=== PATIENT | male | born 1950 | race Caucasian/White ===

== ENCOUNTER 2018-11-20 11:49 | Emergency (ER) | payer MEDICARE ==
--- NOTE | 2018-11-20 12:26 | ER Document Report ---
ED Medical Screen (RME) - General Chief Complaint: Leg Swelling Stated Complaint: LEFT LEG PAIN Time Seen by Provider: 11/20/18 12:20 Primary Care Provider: MARCOS GOMEZ NP [Primary Care Provider] - Follow up as needed Mode of Arrival: Ambulatory Information source: Patient Notes: This 68-year-old male presents emergency department with complaints of left lower leg pain since Sunday. Reports the area is getting increasing pain and warm. 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 Patient also history of diabetes. Patient reports he did drive approximately 8 hours on Sunday. Patient does take Xarelto. Denies other symptoms such as fever chest pain shortness of breath. Patient did go to [facility] prior to arrival and they sent him here. I have greeted and performed a rapid initial assessment of this patient. A comprehensive ED assessment and evaluation of the patient, analysis of test results and completion of the medical decision making process will be conducted by additional ED providers. Dictation of this chart was performed using voice recognition software; therefore, there may be some unintended grammatical e rrors. TRAVEL OUTSIDE OF THE [place] IN LAST 30 DAYS: No - Related Data Allergies/Adverse Reactions: duloxetine HCl [From Cymbalta] Allergy (Severe, Verified 11/20/18 11:50) vertigo hydrocodone [Hydrocodone] Allergy (Verified 11/20/18 11:50) itching oxycodone [Oxycodone] Allergy (Verified 11/20/18 11:50) itching Penicillins Allergy (Verified 11/20/18 11:50) Rash Past Medical History - Social History Chew tobacco use (# tins/day): No Frequency of alcohol use: None Drug Abuse: None - Past Medical History Cardiac Medical History: Reports: Hx Hypertension - medicated Denies: Hx Coronary Artery Disease, Hx Heart Attack Pulmonary Medical History: Denies: Hx Asthma, Hx Bronchitis, Hx COPD, Hx Pneumonia Neurological Medical History: Denies: Hx Cerebrovascular Accident, Hx Seizures GI Medical History: Denies: Hx Hepatitis, Hx Hiatal Hernia, Hx Ulcer Musculoskeltal Medical History: Reports Hx Arthritis Infectious Medical History: Denies: Hx Hepatitis Past Surgical History: Denies: Hx Open Heart Surgery, Hx Pacemaker - Immunizations Hx Diphtheria, Pertussis, Tetanus Vaccination: No Physical Exam - Vital signs Vitals: Temp Pulse Resp BP Pulse Ox 97.6 F 90 18 140/95 H 94 11/20/18 11:59 11/20/18 11:59 11/20/18 11:59 11/20/18 11:59 11/20/18 11:59 Course - Vital Signs Vital signs: Temp Pulse Resp BP Pulse Ox 97.6 F 90 18 140/95 H 94 11/20/18 11:59 11/20/18 11:59 11/20/18 11:59 11/20/18 11:59 11/20/18 11:59 Doctor's Discharge - Discharge Referrals: MARCOS GOMEZ BOBBIN MARKER [Primary Care Provider] - Follow up as needed
[2018-11-20 12:50] LABS: ABSOLUTE EOSINOPHILS # (AUTO) 0.1 10^3/uL (0.0-0.6); ABSOLUTE LYMPHOCYTES (AUTO) 3.1 10^3/uL (0.5-4.7); ABSOLUTE NEUT (AUTO) 5.5 10^3/uL (1.7-8.2); BASOPHILS % (AUTO) 0.3 % (0-2); EOSINOPHILS % (AUTO) 0.8 % (0-6); HEMATOCRIT 44.8 % (37.9-51.0); HEMOGLOBIN 14.5 g/dL (13.5-17.0); LYMPHOCYTES % (AUTO) 32.3 % (13-45); MEAN CORPUSCULAR HEMOGLOBIN 22.5 pg (27.0-33.4); MEAN CORPUSCULAR HGB CONC 32.4 g/dL (32.0-36.0); MEAN CORPUSCULAR VOLUME 69 fl (80-97); MONOCYTES % (AUTO) 10.4 % (3-13); PLATELET COUNT 222 10^3/uL (150-450); RED BLOOD COUNT 6.46 10^6/uL (4.35-5.55); RED CELL DISTRIBUTION WIDTH 18.1 % (11.5-14.0); SEGMENTED NEUTROPHILS % (AUTO) 56.2 % (42-78); TOTAL CELLS COUNTED % (AUTO) 100 %; WHITE BLOOD COUNT 9.7 10^3/uL (4.0-10.5)
[2018-11-20 12:57] LABS: INTERNATIONAL RATION (INR) 1.12; PROTHROMBIN TIME 14.5 SEC (11.4-15.4)
[2018-11-20 12:58] LABS: PARTIAL THROMBOPLASTIN TIME 34.9 SEC (23.5-35.8)
[2018-11-20 13:13] LABS: ALBUMIN 4.3 g/dL (3.5-5.0); ALKALINE PHOSPHATASE 96 U/L (38-126); ANION GAP 10 (5-19); ASPARTATE AMINO TRANSFERASE 34 U/L (17-59); BILIRUBIN,DIRECT 0.3 mg/dL (0.0-0.4); BILIRUBIN,TOTAL 0.5 mg/dL (0.2-1.3); BLOOD UREA NITROGEN 14 mg/dL (7-20); CALCIUM 10.1 mg/dL (8.4-10.2); CARBON DIOXIDE 29 mmol/L (22-30); CHLORIDE 102 mmol/L (98-107); GLUCOSE 91 mg/dL (75-110); POTASSIUM 5.2 mmol/L (3.6-5.0); TOTAL PROTEIN 7.1 g/dL (6.3-8.2)
--- NOTE | 2018-11-20 15:27 | RADIOLOGY REPORT (SQ) ---
EXAM DESCRIPTION: VENOUS UNILATERAL LOWER COMPLETED DATE/TIME: 11/20/2018 3:03 pm REASON FOR STUDY: left lower leg pain, hx DVT COMPARISON: None. TECHNIQUE: Dynamic and static wolff scale and color images acquired of the left leg venous system. Se lected spectral images acquired with additional compression and augmentation maneuvers. The contralat eral common femoral vein and saphenofemoral junction were also imaged. Images stored on PACS. LIMITATIONS: None. FINDINGS: COMMON FEMORAL: Normal phasicity, compression and augmentation. No visualized echogenic ma terial on wolff scale. No defects on color images. FEMORAL: Normal compression and augmentation. No visualized echogenic material on wolff scale. No defe cts on color images. POPLITEAL: Normal compression, augmentation. No visualized echogenic material on wolff scale. No defec ts on color images. CALF VESSELS: Normal compression, augmentation. No visualized echogenic material on wolff scale. No de fects on color images. GSV and SSV: Normal compression, augmentation. No visualized echogenic material on wolff scale. No def ects on color images. ANY DEEP VENOUS INSUFFICIENCY: No. ANY EVIDENCE OF POPLITEAL CYST: No. OTHER: No other finding. CONTRALATERAL COMMON FEMORAL VEIN AND SAPHENOFEMORAL JUNCTION: Normal phasicity, compression and augmentation. No visualized echogenic material on wolff scale. No de fects on color images. IMPRESSION: NO EVIDENCE OF DVT OR SVT IN THE LEFT LEG. TECHNICAL DOCUMENTATION: JOB ID: [id number] [employer]- All Rights Reserved Reading location - IP/workstation name: [email or web address]
--- NOTE | 2018-11-20 16:34 | ER Document Report ---
ED General - General Chief Complaint: Leg Swelling Stated Complaint: LEFT LEG PAIN Time Seen by Provider: 11/20/18 12:20 Primary Care Provider: MARCOS GOMEZ NP [Primary Care Provider] - Follow up as needed Mode of Arrival: Ambulatory TRAVEL OUTSIDE OF THE [place] IN LAST 30 DAYS: No - HPI Notes: Patient is a very pleasant 68-year-old male presents emergency department for evaluation of left leg pain. Is been intermittent since Sunday. He states that it is a sharp and shooting pain, goes through the medial aspect of the posterior leg, which does not seem to be brought about by anything in particular. He saw his primary physicians for [facility], who recommended he come to the emergency department for evaluation. He denies any chest pain or shortness of breath. No injury to the area. He does have a history of aneurysm in that leg, which is calcified. He knows that he has peripheral arterial disease in that leg. The pain is not worsened by exertion. - Related Data Allergies/Adverse Reactions: duloxetine HCl [From Cymbalta] Allergy (Severe, Verified 11/20/18 11:50) vertigo hydrocodone [Hydrocodone] Allergy (Verified 11/20/18 11:50) itching oxycodone [Oxycodone] Allergy (Verified 11/20/18 11:50) itching Penicillins Allergy (Verified 11/20/18 11:50) Rash Past Medical History - General Information source: Patient - Social History Smoking Status: Never Smoker Chew tobacco use (# tins/day): No Frequency of alcohol use: None Drug Abuse: None Family History: Reviewed & Not Pertinent Patient has suicidal ideation: No Patient has homicidal ideation: No - Past Medical History Cardiac Medical History: Reports: Hx DVT, Hx Hypercholesterolemia, Hx Hypertension - medicated Denies: Hx Coronary Artery Disease, Hx Heart Attack Pulmonary Medical History: Denies: Hx Asthma, Hx Bronchitis, Hx COPD, Hx Pneumonia Neurological Medical History: Denies: Hx Cerebrovascular Accident, Hx Seizures GI Medical History: Denies: Hx Hepatitis, Hx Hiatal Hernia, Hx Ulcer Musculoskeletal Medical History: Reports Hx Arthritis, Reports Other - Peripheral artery disease Infectious Medical History: Denies: Hx Hepatitis Past Surgical History: Denies: Hx Open Heart Surgery, Hx Pacemaker - Immunizations Hx Diphtheria, Pertussis, Tetanus Vaccination: No Hx Pneumococcal Vaccination: 12/19/12 Review of Systems - Review of Systems Constitutional: No symptoms reported EENT: No symptoms reported Cardiovascular: No symptoms reported Respiratory: No symptoms reported Gastrointestinal: No symptoms reported Musculoskeletal: See HPI Skin: No symptoms reported Neurological/Psychological: No symptoms reported Physical Exam - Vital signs Vitals: Temp Pulse Resp BP Pulse Ox 97.6 F 90 18 140/95 H 94 11/20/18 11:59 11/20/18 11:59 11/20/18 11:59 11/20/18 11:59 11/20/18 11:59 - Notes Notes: Vital signs reviewed, please refer to chart. Head is normocephalic, atraumatic. Pupils equal round, reactive to light. Neck is supple without meningismus. Heart is regular rate and rhythm. Lungs are clear to auscultation bilaterally. Abdomen is soft, nontender, normoactive bowel sounds throughout. Extremities without cyanosis, clubbing. Mild posterior calf tenderness on the left with negative Homans. Peripheral pulses are diminished on the left but palpable at both dorsalis pedis and posterior tibial pulses. Skin is warm and dry. Patient is awake, alert, neurological exam is nonfocal. Course - Re-evaluation Re-evalutation: 11/20/18 16:37 Patient presents emergency department for evaluation. Primary concern was the patient had a possible DVT. He is Nelson on Xarelto. His vascular study came back negative. He is to follow-up with primary care next week, return to the ED with worsening or new concerning symptoms. - Vital Signs Vital signs: Temp Pulse Resp BP Pulse Ox 97.6 F 90 18 140/95 H 94 11/20/18 11:59 11/20/18 11:59 11/20/18 11:59 11/20/18 11:59 11/20/18 11:59 - Laboratory Result Diagrams: 11/20/18 12:31 11/20/18 12:31 Laboratory results interpreted by me: 11/20/18 11/20/18 12:31 12:31 RBC 6.46 H MCV 69 L MCH 22.5 L RDW 18.1 H Potassium 5.2 H - Diagnostic Test Radiology reviewed: Reports reviewed Radiology results interpreted by me: 11/20/18 16:37 Venous Doppler Study 11/20/18 12:24 IMPRESSION: NO EVIDENCE OF DVT OR SVT IN THE LEFT LEG. Discharge - Discharge Clinical Impression: Pain in left lower leg Condition: Stable Disposition: HOME, SELF-CARE Additional Instructions: No clear cause was found for the pain in your left leg today. Please continue your home medications as prescribed. Follow-up with your doctor next week. If you develop worsening pain, swelling, chest pain, difficulty breathing, or any other new or concerning symptoms, return immediately to the emergency department for evaluation. Referrals: MARCOS GOMEZ STOVE MOUNTER [Primary Care Provider] - Follow up as needed
[2018-11-20 16:53] VITALS: BP 128/89
== END 2018-11-20 16:40 | disposition home or self-care (01) ==
LOC: ER 11:49
DX: M79.605 Pain in left leg (principal); M79.89 Other specified soft tissue disorders; I10 Essential (primary) hypertension; Z79.899 Other long term (current) drug therapy
CPT/HCPCS: 36415; 80053; 85025; 85610; 85730; 93971

== ENCOUNTER 2019-08-13 07:06 | Day surgery (SDC) | payer MEDICARE, OTHER ==
[~2019-08-13 07:06] MED LIST: FENTANYL CITRATE INJ/PF 100 MCG/2 ML AMPUL ONE; MIDAZOLAM 2 MG/2 ML INJ ONE; ONDANSETRON HCL INJ/PF 4 MG/2 ML SDV ONE
[2019-08-13] MEDS: BESIFLOXACIN HCL 0.6% OPH SUSP 5 ML BOTTLE OD PRN ×4 (07:15→08:13)
[2019-08-13] MEDS: TROPICAMIDE 1% OPH SOLN 15 ML OD PRN ×3 (07:15→07:40)
[2019-08-13] MEDS: TETRACAINE HCL 0.5% OPH SOLN 4 ML OD PRN ×2 (07:15→07:52)
[2019-08-13] MEDS: KETOROLAC TROMETHAMINE 0.45% 4 DROP/0.4 ML DROPERETTE OD PRN ×2 (07:15→07:40)
[2019-08-13] MEDS ORDERED: EPINEPHRINE INJ/PF 1 MG/1 ML AMPULE ONE (07:15)
[2019-08-13] MEDS ORDERED: LIDOCAINE 1%/PHENYLEPHRINE 1.5% 1 ML VIAL ONE (07:15)
[2019-08-13] MEDS ORDERED: CHONDR SU A NA/HYALUR INTRAOC KIT (SURGICARE) ONE (07:15)
[2019-08-13] MEDS: CYCLOPENTOLATE 0.2%/PHENYLEPHRINE 1% OPH SOLN 2 ML OD PRN ×3 (07:15→07:40)
[2019-08-13] MEDS: DORZOLAMIDE HCL 2%/TIMOLOL MALEAT 0.5% OPH SOLN 10 ML OD PRN ×2 (08:13)
--- NOTE | 2019-08-13 08:26 | Operative Report ---
Operative Report-[facility] Operative Report: DATE OF SURGERY: August 13, 2019 PREOPERATIVE DIAGNOSIS: NUCLEAR CATARACT, RIGHT EYE. POSTOPERATIVE DIAGNOSIS: NUCLEAR CATARACT, RIGHT EYE. PROCEDURE PERFORMED: PHACOEMULSIFICATION WITH POSTERIOR CHAMBER INTRAOCULAR LENS IMPLANT, RIGHT EYE. SURGEON: Arun Solano DO MEDICATIONS AND ANESTHESIA: Versed: IV Versed Tetracaine drops: 1 to 2 drops given as needed COMPLICATION: None INDICATIONS FOR SURGERY: Medical necessity: Best corrected visual acuity worse than 20/40 secondary to cataracts with impairment of ability to carry out needs or desired activities, blurred vision, visual distortion, reduced contrast sensitivity and/or glare with association functional impairment and supporting documentation/testing, and cataracts causing symptomatic impairment of visual functions not corrected with tolerable changes in glasses or contact lenses interfering with activities of daily life. PROCEDURE: Consent: The risks, benefits and alternatives of this procedures was discussed with the patient. The patient read and signed the consent forms, was identified and was seated in the exam chair. IOL: CXR 00 14.0 IOL Diopters: Phacoemulsification with posterior chamber intraocular lens implant: The face was prepped with 5% povidone iodine solution, and a few drops of 5% povidone iodine solution was instilled into the inferior fornix. A non-fenestrated drape was placed over the eye and the lids were parted with the speculum. A paracentesis was made with a 15 degree blade, and 1% lidocaine MPF followed by viscoelastic was injected into the anterior chamber. A 2.4 mm metal micro- keratome was used to create a temporal clear corneal incision. A circular anterior capsulorrhexis was created, followed by hydro-dissection and hydro- delineation. The phacoemulsification hand piece was inserted and the nucleus was removed with the Phaco chop technique. The irrigation-aspiration hand piece was used to remove the residual cortex, and vacuum the posterior capsule. The capsular bag was inflated and viscoelastic and the above-mentioned IOL was injected into the eye with care to insert both leaning and trailing haptics in the capsular bag. The irrigation/aspiration hand piece was reinserted to remove residual viscoelastic from the capsular bag and anterior chamber. The corneal incision was hydrated, and anterior chamber was inflated with sterile BSS via the paracentesis site, and found to be watertight. Postop medication: 1 drop of prednisolone into operative by followed by 1 drop of Cosopt into operative eye followed by 1 drop of Besivance intraoperative by other:
== END 2019-08-13 08:47 | disposition home or self-care (01) ==
LOC: SC 07:06
PROVIDERS: ATTEND Ophthalmology
DX: H25.11 Age-related nuclear cataract, right eye (principal); E11.9 Type 2 diabetes mellitus without complications; E78.00 Pure hypercholesterolemia, unspecified; I10 Essential (primary) hypertension; Z79.01 Long term (current) use of anticoagulants; Z79.84 Long term (current) use of oral hypoglycemic drugs; Z79.82 Long term (current) use of aspirin; Z79.899 Other long term (current) drug therapy; Z88.5 Allergy status to narcotic agent
CPT/HCPCS: 66984; 82962; J2250; J3490 ×2; A9270; J0171; J2405; 142; J3010

== ENCOUNTER 2019-08-27 11:33 | Day surgery (SDC) | payer MEDICARE, OTHER ==
[~2019-08-27 11:33] MED LIST changes: +CHONDR SU A NA/HYALUR INTRAOC KIT (SURGICARE) ONE; +DORZOLAMIDE HCL 2%/TIMOLOL MALEAT 0.5% OPH SOLN 10 ML OS PRN; +EPINEPHRINE INJ/PF 1 MG/1 ML AMPULE ONE; -FENTANYL CITRATE INJ/PF 100 MCG/2 ML AMPUL ONE; +LIDOCAINE 1%/PHENYLEPHRINE 1.5% 1 ML VIAL ONE; -ONDANSETRON HCL INJ/PF 4 MG/2 ML SDV ONE
[2019-08-27] MEDS: BESIFLOXACIN HCL 0.6% OPH SUSP 5 ML BOTTLE OS PRN ×3 (12:05→13:09)
[2019-08-27] MEDS: TROPICAMIDE 1% OPH SOLN 15 ML OS PRN ×3 (12:05→12:25)
[2019-08-27] MEDS: CYCLOPENTOLATE 0.2%/PHENYLEPHRINE 1% OPH SOLN 2 ML OS PRN ×2 (12:05→12:15)
[2019-08-27] MEDS: TETRACAINE HCL 0.5% OPH SOLN 4 ML OS PRN ×3 (12:06→12:42)
[2019-08-27] MEDS: KETOROLAC TROMETHAMINE 0.45% 4 DROP/0.4 ML DROPERETTE OS PRN ×2 (12:06→12:25)
--- NOTE | 2019-08-27 13:36 | Operative Report ---
Operative Report-[facility] Operative Report: DATE OF SURGERY: August 27, 2019 PREOPERATIVE DIAGNOSIS: NUCLEAR CATARACT, LEFT EYE. POSTOPERATIVE DIAGNOSIS: NUCLEAR CATARACT, LEFT EYE. PROCEDURE PERFORMED: PHACOEMULSIFICATION WITH POSTERIOR CHAMBER INTRAOCULAR LENS IMPLANT, LEFT EYE. SURGEON: Arun Solano DO MEDICATIONS AND ANESTHESIA: Versed: IV Versed Tetracaine drops: 1 to 2 drops given as needed COMPLICATION: None INDICATIONS FOR SURGERY: Medical necessity: Best corrected visual acuity worse than 20/40 secondary to cataracts with impairment of ability to carry out needs or desired activities, blurred vision, visual distortion, reduced contrast sensitivity and/or glare with association functional impairment and supporting documentation/testing, and cataracts causing symptomatic impairment of visual functions not corrected with tolerable changes in glasses or contact lenses interfering with activities of daily life. PROCEDURE: Consent: The risks, benefits and alternatives of this procedures was discussed with the patient. The patient read and signed the consent forms, was identified and was seated in the exam chair. IOL: Z XT 225 16.0 at 1 degrees IOL Diopters: Phacoemulsification with posterior chamber intraocular lens implant: The face was prepped with 5% povidone iodine solution, and a few drops of 5% povidone iodine solution was instilled into the inferior fornix. A non-fenestrated drape was placed over the eye and the lids were parted with the speculum. A paracentesis was made with a 15 degree blade, and 1% lidocaine MPF followed by viscoelastic was injected into the anterior chamber. A 2.4 mm metal micro- keratome was used to create a temporal clear corneal incision. A circular anterior capsulorrhexis was created, followed by hydro-dissection and hydro- delineation. The phacoemulsification hand piece was inserted and the nucleus was removed with the Phaco chop technique. The irrigation-aspiration hand piece was used to remove the residual cortex, and vacuum the posterior capsule. The capsular bag was inflated and viscoelastic and the above-mentioned IOL was injected into the eye with care to insert both leaning and trailing haptics in the capsular bag. The irrigation/aspiration hand piece was reinserted to remove residual viscoelastic from the capsular bag and anterior chamber. The corneal incision was hydrated, and anterior chamber was inflated with sterile BSS via the paracentesis site, and found to be watertight. Postop medication:1 drop of prednisolone into operative by followed by 1 drop of Cosopt into operative eye followed by 1 drop of Besivance intraoperative by Other:
== END 2019-08-27 13:39 | disposition home or self-care (01) ==
LOC: SC 11:33
PROVIDERS: ATTEND Ophthalmology
DX: H25.12 Age-related nuclear cataract, left eye (principal); Z98.41 Cataract extraction status, right eye; I10 Essential (primary) hypertension; E11.9 Type 2 diabetes mellitus without complications; E78.00 Pure hypercholesterolemia, unspecified; Z79.84 Long term (current) use of oral hypoglycemic drugs; Z79.899 Other long term (current) drug therapy; Z88.5 Allergy status to narcotic agent; Z79.82 Long term (current) use of aspirin; Z79.01 Long term (current) use of anticoagulants
CPT/HCPCS: 66984; 82962; V2788; J2250; J3490 ×2; A9270; J0171; 142

== ENCOUNTER 2019-12-06 21:24 | Emergency (ER) | payer MEDICARE, OTHER ==
[2019-12-06] MEDS ORDERED: CLINDAMYCIN 600 MG/D5W RTU 600 MG/50 ML RTUPB IV ONE (22:17)
[2019-12-06] MEDS ORDERED: DIPH/PERTUSS(ACELL)/TETANUS VAC/PF 0.5 ML SYR (>=10YO) IM ONE (22:19)
--- NOTE | 2019-12-06 22:19 | ER Document Report ---
ED Medical Screen (RME) - General Chief Complaint: Leg Swelling Stated Complaint: RIGHT LEG SWELLING Time Seen by Provider: 12/06/19 22:15 Primary Care Provider: ELIAN GOMEZ PA [Primary Care Provider] - Follow up as needed Notes: HPI: 69-year-old diabetic male presenting for redness and swelling of the right leg. Patient was kneeling on the knees is not sure if he got cut on wood but noticed some redness and swelling over the knee today. States the redness is now spreading down the anterior knee. He believes he may have had a fever at home. Was concerned over infection and because he is diabetic. Unsure of tetanus status PHYSICAL EXAMINATION: Superficial scratches over the anterior knee there is some soft tissue swelling over the anterior knee with no palpable foreign body there is erythema extending down anteriorly and laterally on the right lower leg from the level of the knee to the ankle I have greeted and performed a rapid initial assessment of this patient. A comprehensive ED assessment and evaluation of the patient, analysis of test results and completion of medical decision making process will be conducted by an additional ED providers. TRAVEL OUTSIDE OF THE [place] IN LAST 30 DAYS: No - Related Data Allergies/Adverse Reactions: duloxetine HCl [From Cymbalta] Allergy (Intermediate, Verified 12/06/19 22:14) vertigo hydrocodone [Hydrocodone] Allergy (Verified 12/06/19 22:14) itching oxycodone [Oxycodone] Allergy (Verified 12/06/19 22:14) itching Penicillins Allergy (Verified 12/06/19 22:14) Rash Past Medical History - Past Medical History Cardiac Medical History: Reports: Hx DVT, Hx Hypercholesterolemia, Hx Hypertension - medicated Denies: Hx Coronary Artery Disease, Hx Heart Attack Pulmonary Medical History: Denies: Hx Asthma, Hx Bronchitis, Hx COPD, Hx Pneumonia Neurological Medical History: Denies: Hx Cerebrovascular Accident, Hx Seizures GI Medical History: Denies: Hx Hepatitis, Hx Hiatal Hernia, Hx Ulcer Musculoskeltal Medical History: Reports Hx Arthritis Infectious Medical History: Denies: Hx Hepatitis Past Surgical History: Denies: Hx Open Heart Surgery, Hx Pacemaker - Immunizations Hx Diphtheria, Pertussis, Tetanus Vaccination: No Physical Exam - Vital signs Vitals: Temp Pulse Resp BP Pulse Ox 97.8 F 106 H 16 136/83 H 98 12/06/19 21:35 12/06/19 21:35 12/06/19 21:35 12/06/19 21:35 12/06/19 21:35 Course - Vital Signs Vital signs: Temp Pulse Resp BP Pulse Ox 97.8 F 106 H 16 136/83 H 98 12/06/19 21:35 12/06/19 21:35 12/06/19 21:35 12/06/19 21:35 12/06/19 21:35 Doctor's Discharge - Discharge Referrals: ELIAN GOMEZ PA [Primary Care Provider] - Follow up as needed
[2019-12-06 22:37] LABS: ABSOLUTE MONOCYTES (AUTO) 1.1 10^3/uL (0.1-1.4); ABSOLUTE NEUT (AUTO) 7.6 10^3/uL (1.7-8.2); BASOPHILS % (AUTO) 0.4 % (0-2); EOSINOPHILS % (AUTO) 0.3 % (0-6); HEMATOCRIT 43.4 % (37.9-51.0); HEMOGLOBIN 14.4 g/dL (13.5-17.0); LYMPHOCYTES % (AUTO) 25.4 % (13-45); MEAN CORPUSCULAR HEMOGLOBIN 23.9 pg (27.0-33.4); MEAN CORPUSCULAR HGB CONC 33.1 g/dL (32.0-36.0); MEAN CORPUSCULAR VOLUME 72 fl (80-97); MONOCYTES % (AUTO) 9.4 % (3-13); PLATELET COUNT 190 10^3/uL (150-450); RED BLOOD COUNT 5.99 10^6/uL (4.35-5.55); SEGMENTED NEUTROPHILS % (AUTO) 64.5 % (42-78); TOTAL CELLS COUNTED % (AUTO) 100 %; WHITE BLOOD COUNT 11.7 10^3/uL (4.0-10.5)
[2019-12-06 22:58] LABS: ALBUMIN 4.1 g/dL (3.5-5.0); ALKALINE PHOSPHATASE 86 U/L (38-126); ANION GAP 12 (5-19); ASPARTATE AMINO TRANSFERASE 37 U/L (17-59); BILIRUBIN,DIRECT 0.7 mg/dL (0.0-0.4); BILIRUBIN,TOTAL 0.8 mg/dL (0.2-1.3); BLOOD UREA NITROGEN 18 mg/dL (7-20); CALCIUM 9.3 mg/dL (8.4-10.2); CARBON DIOXIDE 25 mmol/L (22-30); CHLORIDE 102 mmol/L (98-107); GLUCOSE 138 mg/dL (75-110); TOTAL PROTEIN 6.7 g/dL (6.3-8.2)
[2019-12-07] MEDS ORDERED: CLINDAMYCIN 600 MG/D5W RTU 600 MG/50 ML RTUPB IV ONE (01:45)
[2019-12-07] MEDS ORDERED: DIPH/PERTUSS(ACELL)/TETANUS VAC/PF 0.5 ML SYR (>=10YO) IM ONE (01:45)
--- NOTE | 2019-12-07 02:53 | ER Document Report ---
ED Extremity Problem, Lower - General Chief Complaint: Leg Swelling Stated Complaint: RIGHT LEG SWELLING Time Seen by Provider: 12/06/19 22:15 Primary Care Provider: ELIAN GOMEZ PA [Primary Care Provider] - Follow up in 1 week Notes: Patient is a 69-year-old male who presents emergency department with a chief complaint of right knee redness and swelling down his right leg. Patient states that he was working on his knees and ended up getting a few cuts in his right knee. States that he had 2 "pimples" to the area. Patient states that he has history of arterial insufficiency in the past. He is currently on Xarelto. TRAVEL OUTSIDE OF THE [place] IN LAST 30 DAYS: No - Related Data Allergies/Adverse Reactions: duloxetine HCl [From Cymbalta] Allergy (Intermediate, Verified 12/06/19 22:14) vertigo hydrocodone [Hydrocodone] Allergy (Verified 12/06/19 22:14) itching oxycodone [Oxycodone] Allergy (Verified 12/06/19 22:14) itching Penicillins Allergy (Verified 12/06/19 22:14) Rash Past Medical History - Social History Smoking Status: Never Smoker Frequency of alcohol use: None Drug Abuse: None Family History: Reviewed & Not Pertinent Patient has homicidal ideation: No - Past Medical History Cardiac Medical History: Reports: Hx DVT, Hx Hypercholesterolemia, Hx Hypertension - medicated Denies: Hx Coronary Artery Disease, Hx Heart Attack Pulmonary Medical History: Denies: Hx Asthma, Hx Bronchitis, Hx COPD, Hx Pneumonia Neurological Medical History: Denies: Hx Cerebrovascular Accident, Hx Seizures Endocrine Medical History: Reports: Hx Diabetes Mellitus Type 2 GI Medical History: Denies: Hx Hepatitis, Hx Hiatal Hernia, Hx Ulcer Musculoskeletal Medical History: Reports Hx Arthritis Infectious Medical History: Denies: Hx Hepatitis Past Surgical History: Reports: Hx Orthopedic Surgery - left shoulder; right wrist; back fusion and rods; hips, Hx Tonsillectomy. Denies: Hx Open Heart Surgery, Hx Pacemaker - Immunizations Hx Diphtheria, Pertussis, Tetanus Vaccination: No Hx Pneumococcal Vaccination: 12/19/12 Review of Systems - Review of Systems Notes: REVIEW OF SYSTEMS: CONSTITUTIONAL : Denies recent illness. Denies recent unintentional weight loss. Denies fever, chills, or sweats. EENT: Denies eye, ear, throat, or mouth pain, discharge, or symptoms. Denies nasal or sinus congestion. CARDIOVASCULAR: Denies chest pain. RESPIRATORY: Denies shortness of breath, cough, congestion, difficulty breath ing, or wheezing. GASTROINTESTINAL: Denies nausea, vomiting, and diarrhea. Denies abdominal pain. Denies constipation. GENITOURINARY: Denies difficulty urinating, burning, blood in urine, urgency or frequency. MUSCULOSKELETAL: Denies neck and back pain. Denies joint pain or swelling. SKIN: See HPI. HEMATOLOGIC : Denies easy bruising or bleeding. LYMPHATIC: Denies swollen, painful, enlarged glands. NEUROLOGICAL: Denies no numbness or tingling denies weakness. Denies headache. Denies altered mental status. Denies alteration in speech. PSYCHIATRIC: Denies stress, anxiety, alteration in sleep patterns, or depression. All other systems reviewed and negative. Physical Exam - Vital signs Vitals: Temp Pulse Resp BP Pulse Ox 97.8 F 106 H 16 136/83 H 98 12/06/19 21:35 12/06/19 21:35 12/06/19 21:35 12/06/19 21:35 12/06/19 21:35 - Notes Notes: PHYSICAL EXAMINATION: GENERAL: Appears well, healthy, well-nourished, no acute distress. HEAD: Normocephalic, atraumatic. EYES: PERRL, conjunctiva normal, all extraocular movements intact, sclera va cteric ENT: Moist mucous membranes. NECK: Supple, no noticeable swelling, redness, rash. Normal range of motion. LUNGS: Equal breath sounds bilaterally and clear to auscultation. No wheezes rales or rhonchi. CARDIOVASCULAR: S1-S2, regular rate, regular rhythm. Radial pulses 2+, normal. ABDOMEN: Normoactive bowel sounds. Soft, nontender, no guarding, no rebound tenderness, and no masses palpated. EXTREMITIES: Normal strength and range of motion, no pitting or edema. No cyanosis. NEUROLOGICAL: Moves all extremities upon command. Strength 5/5 in all extremities. PSYCH: Normal mood, normal affect. SKIN: Warm, dry. Erythema noted to anterior right lower leg from knee all the way down to lower half of the jade. No erythema to back of leg. Course - Re-evaluation Re-evalutation: 12/07/19 02:53 Patient presents with symptoms most consistent with an acute cellulitis with a small abscess. Abscess was drained. See procedure note vitals within normal limits. Patient does not meet sepsis criteria is overall very well in appearance. Exam and history are not consistent with DVT. Patient will be started on coverage for both staph and strep. At this time will discharge with return precautions and follow-up recommendations. Verbal discharge instructions given a the bedside and opportunity for questions given. Medication warnings reviewed. Patient is in agreement with this plan and has verbalized under standing of return precautions and the need for primary care follow-up in the next 24-72 hours. - Vital Signs Vital signs: Temp Pulse Resp BP Pulse Ox 98.1 F 81 16 129/81 H 98 12/07/19 03:12 12/07/19 03:12 12/07/19 03:12 12/07/19 03:12 12/07/19 03:12 - Laboratory Result Diagrams: 12/06/19 22:15 12/06/19 22:15 Laboratory results interpreted by me: 12/06/19 12/06/19 22:15 22:15 WBC 11.7 H RBC 5.99 H MCV 72 L MCH 23.9 L RDW 17.0 H Glucose 138 H Direct Bilirubin 0.7 H Procedures - Incision and Drainage Right Anterior Knee Type: Simple I&D procedure: Betadine prep applied Incision Method: Incision made with needle Amount/type of drainage: 0.25 mL's/purulent Discharge - Discharge Clinical Impression: Cellulitis Qualifiers: Site of cellulitis: extremity Site of cellulitis of extremity: lower extremity Laterality: right Qualified Code(s): L03.115 - Cellulitis of right lower limb Condition: Stable Disposition: HOME, SELF-CARE Additional Instructions: The rash is likely due to infection of your skin. You need to take the antibiotics as prescribed. Do not stop even if the rash goes away until you have completed all the antibiotics. The area of redness was traced out here in the emergency department with a marking pen. You need to return to emergency department if the redness spreads outside of this area by more than 2 cm in any direction. You should also return if you develop fevers with temperature grea ter than 101, persistent vomiting, worsening pain, or have any other symptoms that are concerning to you. You also had a small abscess/pimple to your right knee. It was drained here in the emergency department. Please keep the area and clean and dry. I recommend wearing knee pads if needed if you work on your knees again. Please try not to work on your knees until the infection clears. Prescriptions: Clindamycin HCl [Cleocin 150 mg Capsule] 300 mg PO Q6 7 Days #56 capsule Referrals: ELIAN GOMEZ PA [Primary Care Provider] - Follow up in 1 week
[2019-12-07 03:14] VITALS: BP 129/81
== END 2019-12-07 03:12 | disposition home or self-care (01) ==
LOC: ER 21:24
DX: L03.115 Cellulitis of right lower limb (principal); L02.415 Cutaneous abscess of right lower limb; I10 Essential (primary) hypertension; E11.9 Type 2 diabetes mellitus without complications; Z79.01 Long term (current) use of anticoagulants; Z86.718 Personal history of other venous thrombosis and embolism; Z88.8 Allergy status to other drugs, medicaments and biological substances; Z88.6 Allergy status to analgesic agent; Z88.5 Allergy status to narcotic agent; Z88.0 Allergy status to penicillin
CPT/HCPCS: 36415; 80053; 85025; 87040; 90471; 90715; 96365; 99284

== ENCOUNTER 2019-12-10 10:01 | Emergency (ER) | payer MEDICARE, OTHER ==
--- NOTE | 2019-12-10 10:41 | ER Document Report ---
ED Extremity Problem, Lower - General Chief Complaint: Leg Pain Stated Complaint: RIGHT LEG PAIN Primary Care Provider: ELIAN GOMEZ PA [Primary Care Provider] - Follow up as needed TRAVEL OUTSIDE OF THE [place] IN LAST 30 DAYS: No - Related Data Allergies/Adverse Reactions: duloxetine HCl [From Cymbalta] Allergy (Intermediate, Verified 12/10/19 10:20) vertigo hydrocodone [Hydrocodone] Allergy (Verified 12/10/19 10:20) itching oxycodone [Oxycodone] Allergy (Verified 12/10/19 10:20) itching Penicillins Allergy (Verified 12/10/19 10:20) Rash Home Medications: atb. metformin. amolodipine. atorvastatin. xarelto. jardince. asa. multivitamin Past Medical History - Social History Smoking Status: Never Smoker Chew tobacco use (# tins/day): No Frequency of alcohol use: None Drug Abuse: None Family History: Reviewed & Not Pertinent Patient has homicidal ideation: No - Past Medical History Cardiac Medical History: Reports: Hx DVT, Hx Hypercholesterolemia, Hx Hypertension - medicated Denies: Hx Coronary Artery Disease, Hx Heart Attack Pulmonary Medical History: Denies: Hx Asthma, Hx Bronchitis, Hx COPD, Hx Pneumonia Neurological Medical History: Denies: Hx Cerebrovascular Accident, Hx Seizures Endocrine Medical History: Reports: Hx Diabetes Mellitus Type 2 GI Medical History: Denies: Hx Hepatitis, Hx Hiatal Hernia, Hx Ulcer Musculoskeletal Medical History: Reports Hx Arthritis Infectious Medical History: Denies: Hx Hepatitis Past Surgical History: Reports: Hx Orthopedic Surgery - left shoulder; right wrist; back fusion and rods; hips, Hx Tonsillectomy. Denies: Hx Open Heart Surgery, Hx Pacemaker - Immunizations Hx Diphtheria, Pertussis, Tetanus Vaccination: No Hx Pneumococcal Vaccination: 12/19/12 Physical Exam - Vital signs Vitals: Temp Pulse Resp BP Pulse Ox 97.3 F 94 16 147/93 H 100 12/10/19 10:08 12/10/19 10:12/10/19 10:12/10/19 10:08 12/10/19 10:08 Course - Vital Signs Vital signs: Temp Pulse Resp BP Pulse Ox 97.3 F 94 16 147/93 H 100 12/10/19 10:20 12/10/19 10:08 12/10/19 10:08 12/10/19 10:08 12/10/19 10:08 Discharge - Discharge Referrals: ELIAN GOMEZ PA [Primary Care Provider] - Follow up as needed
--- NOTE | 2019-12-10 11:27 | ER Document Report ---
ED Extremity Problem, Lower - General Chief Complaint: Leg Pain Stated Complaint: RIGHT LEG PAIN Time Seen by Provider: 12/10/19 10:41 Primary Care Provider: ELIAN GOMEZ PA [Primary Care Provider] - Follow up as needed Mode of Arrival: Ambulatory Information source: Patient Notes: Patient is a 69-year-old male with past medical history of diabetes and coronary artery disease presenting to the emergency department with complaints of right knee pain, swelling and redness. Patient reports he was seen in this emergency department several days ago, placed on clindamycin and had an incision and drainage done. Patient reports the redness that was extending down his leg has gotten better however the pain and swelling has worsened. He does report doing work in his garage on his knees, states that he may have had an abrasion or something to the knee that started all of this. TRAVEL OUTSIDE OF THE [place] IN LAST 30 DAYS: No - Related Data Allergies/Adverse Reactions: duloxetine HCl [From Cymbalta] Allergy (Intermediate, Verified 12/10/19 10:20) vertigo hydrocodone [Hydrocodone] Allergy (Verified 12/10/19 10:20) itching oxycodone [Oxycodone] Allergy (Verified 12/10/19 10:20) itching Penicillins Allergy (Verified 12/10/19 10:20) Rash Home Medications: atb. metformin. amolodipine. atorvastatin. xarelto. jardince. asa. multivitamin Past Medical History - General Information source: Patient - Social History Smoking Status: Never Smoker Chew tobacco use (# tins/day): No Frequency of alcohol use: None Drug Abuse: None Family History: Reviewed & Not Pertinent Patient has homicidal ideation: No - Past Medical History Cardiac Medical History: Reports: Hx DVT, Hx Hypercholesterolemia, Hx Hypertension - medicated Denies: Hx Coronary Artery Disease Endocrine Medical History: Reports: Hx Diabetes Mellitus Type 2 GI Medical History: Denies: Hx Hepatitis, Hx Hiatal Hernia, Hx Ulcer Musculoskeletal Medical History: Reports Hx Arthritis Infectious Medical History: Denies: Hx Hepatitis Past Surgical History: Reports: Hx Orthopedic Surgery - left shoulder; right wrist; back fusion and rods; hips, Hx Tonsillectomy. Denies: Hx Open Heart Surgery, Hx Pacemaker - Immunizations Hx Diphtheria, Pertussis, Tetanus Vaccination: No Hx Pneumococcal Vaccination: 10/10/13 Review of Systems - Review of Systems Constitutional: No symptoms reported EENT: No symptoms reported Cardiovascular: No symptoms reported Respiratory: No symptoms reported Gastrointestinal: No symptoms reported Genitourinary: No symptoms reported Male Genitourinary: No symptoms reported Musculoskeletal: See HPI Skin: See HPI Hematologic/Lymphatic: No symptoms reported Neurological/Psychological: No symptoms reported Physical Exam - Vital signs Vitals: Temp Pulse Resp BP Pulse Ox 97.3 F 94 16 147/93 H 100 12/10/19 10:08 12/10/19 10:08 12/10/19 10:08 12/10/19 10:08 12/10/19 10:08 - Notes Notes: PHYSICAL EXAMINATION: GENERAL: Well-appearing, well-nourished and in no acute distress. HEAD: Atraumatic, normocephalic. EYES: Pupils equal round and reactive to light, extraocular movements intact, sclera anicteric, conjunctiva are normal. ENT: Nares patent, oropharynx clear without exudates. Moist mucous membranes. NECK: Normal range of motion, supple without lymphadenopathy LUNGS: Breath sounds clear to auscultation bilaterally and equal. No wheezes rales or rhonchi. HEART: Regular rate and rhythm without murmurs ABDOMEN: Soft, nontender, nondistended abdomen. No guarding, no rebound. No masses appreciated. Musculoskeletal: Limited range of motion to right knee secondary to pain. Swelling noted to right knee with erythema. NEUROLOGICAL: Cranial nerves grossly intact. Normal speech, normal gait. Normal sensory, motor exams PSYCH: Normal mood, normal affect. SKIN: Erythema noted to anterior right knee. Course - Re-evaluation Re-evalutation: 12/10/19 11:26 Dr. Pino to bedside to evaluate. Patient's labs were reassuring today. His white blood count is normal. CT she has bursitis. Will increase patient's dose of clindamycin to 600 mg 3 times daily for 14 days. Also recommend that he take ibuprofen. Patient agreeable to this plan. ED return precautions discussed, patient verbalized understanding and agreement with same. - Vital Signs Vital signs: Temp Pulse Resp BP Pulse Ox 97.9 F 84 16 133/86 H 98 12/10/19 12:52 12/10/19 12:52 12/10/19 12:52 12/10/19 12:52 12/10/19 12:52 - Laboratory Result Diagrams: 12/10/19 10:55 12/10/19 10:55 Laboratory results interpreted by me: 12/10/19 12/10/19 10:55 10:55 RBC 6.02 H MCV 72 L MCH 24.3 L RDW 17.0 H Glucose 141 H Direct Bilirubin 0.6 H C-Reactive Protein 26.7 H Discharge - Discharge Clinical Impression: Bursitis of right knee Qualifiers: Knee bursitis location: unspecified Qualified Code(s): M70.51 - Other bursitis of knee, right knee Condition: Stable Disposition: HOME, SELF-CARE Additional Instructions: Bursitis You have been diagnosed as having bursitis. Bursitis is an inflammation of a fluid pouch (bursa) found near joints. This is usually due to repeated minor irritation, or pressure directly on the bursa. On occasion, the bursitis can be due to infection (your doctor has checked for this). Sometimes the doctor decides to remove the fluid from the bursa with a needle. This may be to examine the fluid for infection or to ease the pressure caused by the fluid. The usual treatment is rest, local warmth, (or cold if the bursitis is caused by an acute injury), and antiinflammatory medication. Occasionally, an injection of cortisone is necessary. You should call the doctor for re-examination if the pain increases significantly, or if the area becomes severely swollen and red, or fever develops. Please take medication as prescribed. The dose of clindamycin that we are starting on is an increased dose from what you were started on the other day. Please also take ibuprofen 600 mg every 6 hours as this will help with the pain and inflammation. Please make sure to follow-up with your primary care provider in 3 to 5 days for recheck. Return to the emergency department if worsening or if you develop a fever. Prescriptions: Clindamycin HCl 600 mg PO TID 14 Days #84 capsule Referrals: ELIAN GOMEZ PA [Primary Care Provider] - Follow up as needed
[2019-12-10 11:45] LABS: ABSOLUTE LYMPHOCYTES (AUTO) 2.1 10^3/uL (0.5-4.7); ABSOLUTE MONOCYTES (AUTO) 0.7 10^3/uL (0.1-1.4); ABSOLUTE NEUT (AUTO) 4.5 10^3/uL (1.7-8.2); BASOPHILS % (AUTO) 0.3 % (0-2); EOSINOPHILS % (AUTO) 0.6 % (0-6); HEMATOCRIT 43.5 % (37.9-51.0); HEMOGLOBIN 14.6 g/dL (13.5-17.0); MEAN CORPUSCULAR HEMOGLOBIN 24.3 pg (27.0-33.4); MEAN CORPUSCULAR HGB CONC 33.7 g/dL (32.0-36.0); MEAN CORPUSCULAR VOLUME 72 fl (80-97); MONOCYTES % (AUTO) 9.6 % (3-13); PLATELET COUNT 218 10^3/uL (150-450); RED BLOOD COUNT 6.02 10^6/uL (4.35-5.55); SEGMENTED NEUTROPHILS % (AUTO) 61.5 % (42-78); TOTAL CELLS COUNTED % (AUTO) 100 %; WHITE BLOOD COUNT 7.4 10^3/uL (4.0-10.5)
[2019-12-10 11:46] LABS: ALBUMIN 4.2 g/dL (3.5-5.0); ALKALINE PHOSPHATASE 98 U/L (38-126); ANION GAP 12 (5-19); ASPARTATE AMINO TRANSFERASE 40 U/L (17-59); BILIRUBIN,DIRECT 0.6 mg/dL (0.0-0.4); BILIRUBIN,TOTAL 0.6 mg/dL (0.2-1.3); BLOOD UREA NITROGEN 11 mg/dL (7-20); C-REACTIVE PROTEIN 26.7 mg/L (<10.0); CALCIUM 9.4 mg/dL (8.4-10.2); CARBON DIOXIDE 25 mmol/L (22-30); CHLORIDE 103 mmol/L (98-107); GLUCOSE 141 mg/dL (75-110); POTASSIUM 4.1 mmol/L (3.6-5.0)
--- NOTE | 2019-12-10 11:55 | RADIOLOGY REPORT (SQ) ---
EXAM DESCRIPTION: CT RT LOWER EXTREMITY WITHOUT IMAGES COMPLETED DATE/TIME: 12/10/2019 10:37 am REASON FOR STUDY: R knee swelling, redness, pain COMPARISON: None. TECHNIQUE: CT scan of the right knee performed without intravenous or oral contrast. Images reviewe d with soft tissue and bone windows. Reconstructed coronal and sagittal MPR images reviewed. All im ages stored on PACS. All CT scanners at this facility use dose modulation, iterative reconstruction, and/or weight based d osing when appropriate to reduce radiation dose to as low as reasonably achievable (ALARA). [facility]: Dose Right [facility]: CareDose [facility]: Dose Right [facility]: Teradose 4D [facility]: Smart [employer] RADIATION DOSE: CT Rad equipment meets quality standard of care and radiation dose reduction techniq ues were employed. CTDIvol: 4.1 mGy. DLP: 97 mGy-cm. mGy. LIMITATIONS: None. FINDINGS: BONES: No acute fracture. No worrisome bone lesions. Small marginal osteophytes at the pa tellofemoral joint. Bony spurring of the tibial spines. SOFT TISSUES: There are vascular calcifications. Subcutaneous edema and skin thickening overlying th e patella, consistent with prepatellar bursitis. There is no knee joint effusion. OTHER: No other significant finding. IMPRESSION: 1. Prepatellar bursitis. 2. Mild tricompartmental osteoarthritis. No acute fracture or dislocation. TECHNICAL DOCUMENTATION: JOB ID: [id number] Quality ID # [id number]: Final reports with documentation of one or more dose reduction techniques (e.g., Au tomated exposure control, adjustment of the mA and/or kV according to patient size, use of iterative reconstruction technique) 2010 [employer]- All Rights Reserved Reading location - IP/workstation name: [email or web address]
[2019-12-10 12:54] VITALS: BP 133/86
== END 2019-12-10 13:06 | disposition home or self-care (01) ==
LOC: ER 10:01
DX: M70.41 Prepatellar bursitis, right knee (principal); M17.11 Unilateral primary osteoarthritis, right knee; E11.9 Type 2 diabetes mellitus without complications; I25.10 Atherosclerotic heart disease of native coronary artery without angina pectoris; E78.00 Pure hypercholesterolemia, unspecified; I10 Essential (primary) hypertension; Z98.890 Other specified postprocedural states; Z86.718 Personal history of other venous thrombosis and embolism; Z79.01 Long term (current) use of anticoagulants; Z79.84 Long term (current) use of oral hypoglycemic drugs; Z79.899 Other long term (current) drug therapy; Z79.82 Long term (current) use of aspirin; Z88.8 Allergy status to other drugs, medicaments and biological substances; Z88.6 Allergy status to analgesic agent; Z88.5 Allergy status to narcotic agent; Z88.0 Allergy status to penicillin
CPT/HCPCS: 36415; 80053; 85025; 86140; 99284